=== PATIENT | male | born 1955 | race Caucasian/White ===

== ENCOUNTER 2019-01-23 23:45 | Emergency (ER) | payer MEDICAID ==
[~2019-01-23] VITALS: Ht 157.5 cm; Wt 81.6 kg
--- NOTE | 2019-01-23 23:45 | NUR ---
TO BED 7 AMBULATORY C/O GENERALIZED RASH, DEPRESSION, ANXIETY, SI WITHOUT PLAN PT STATES "I'M NOT QUITE THAT FAR YET", PT DENIES HI. PT CALM AND COOPERATIVE AT THIS TIME. PT AAOX4 NO ACUTE DISTRESS NOTED, RESP EVEN AND UNLABORED. PENDING ER MD DAGN.
--- NOTE | 2019-01-24 00:30 | NUR ---
URINE SAMPLE COLLECTED AND SENT TO LAB.
[2019-01-24 02:33] LABS: APPEARANCE,URINE Clear (CLEAR); BILIRUBIN,URINE Negative (NEGATIVE); BLOOD, URINE Negative Ery/uL (NEGATIVE); COLOR,URINE Yellow (YELLOW); KETONES,URINE Negative (NEGATIVE); LEUKOCYTE ESTERASE ,URINE Negative (NEGATIVE); NITRITE, URINE Negative (NEGATIVE); PROTEIN,URINE >=300 mg/dl (NEGATIVE); UGLUCOSE Negative (NEGATIVE); UROBILINOGEN,URINE 0.2 EU/dL (0.2)
[2019-01-24 02:48] LABS: BASOPHILS % (AUTO) 0.4 % (0.0-2.0); EOSINOPHILS % (AUTO) 5.2 % (0.0-6.0); HEMATOCRIT 46 % (39-51); HEMOGLOBIN 15.4 g/dL (13.5-17.5); LYMPHOCYTES # (AUTO) 1.8 /CMM (0.8-4.8); LYMPHOCYTES % (AUTO) 19.7 % (20.0-44.0); MEAN CORPUSCULAR HGB CONC 34 g/dl (31.0-36.0); MEAN CORPUSCULAR VOLUME 90 fL (80-96); MONOCYTES % (AUTO) 11.6 % (2.0-12.0); NEUTROPHILS # (AUTO) 5.7 /CMM (1.8-8.9); NEUTROPHILS % (AUTO) 63.1 % (43.0-81.0); PLATELET COUNT (AUTO) 213 /CMM (150-450); RED BLOOD CELL COUNT(AUTO) 5.05 MIL/uL (4.5-6.0)
[2019-01-24 02:50] LABS: CALCIUM, SERUM 8.9 mg/dL (8.5-10.1); CARBON DIOXIDE 24 mmol/L (21-32); CHLORIDE 106 mmol/L (98-107); CREATININE 2.4 mg/dL (0.6-1.3); GLUCOSE 114 mg/dL (74-106); POTASSIUM 4.1 mmol/L (3.5-5.1); SODIUM SERUM 142 mmol/L (136-145); UREA NITROGEN, BLOOD 41 mg/dL (7-18)
[2019-01-24 02:54] LABS: ALANINE AMINOTRANSFERASE 32 U/L (12-78); ALBUMIN 3.1 g/dL (3.4-5.0); ALKALINE PHOSPHATASE 88 U/L (46-116); ASPARTATE AMINOTRANSFERASE 16 U/L (15-37); BILIRUBIN,DIRECT 0.1 mg/dL (0.0-0.2); BILIRUBIN,TOTAL 0.2 mg/dL (0.2-1.0); TOTAL PROTEIN, SERUM 7.6 g/dL (6.4-8.2)
[2019-01-24 02:57] LABS: ACETAMINOPHEN 0 ug/ml (10-30); ALCOHOL, BLOOD < 3 mg/dL (0-0); SALICYLATE 1.1 mg/dL (2.8-20.0)
--- NOTE | 2019-01-24 03:16 | NUR ---
PAGED FLAT DRIER
--- NOTE | 2019-01-24 03:38 | NUR ---
PT ASLEEP, NO ACUTE DISTRESS NOTED, RESP EVEN AND UNLABORED. CALL LIGHT WITHIN REACH.
--- NOTE | 2019-01-24 04:19 | NUR ---
NIDIA POZO AT BEDSIDE TO EVAL PT. PT REMAINS CALM AND COOPERATIVE AT THIS TIME.
--- NOTE | 2019-01-24 05:28 | NUR ---
Patient discharged to home in stable condition. Written and verbal after care instructions given. Patient verbalizes understanding of instruction. ambulatory with a steady gait with proper use of personal walker. pt aaox4 no acute distress noted, resp even and unlabored. pt remains calm. pt denies SI/HI at this time. nursing sugar house supervisor called for taxi voucher as per pt request.
[2019-01-24 05:30] VITALS: BP 143/76
== END 2019-01-24 05:34 | disposition home or self-care (01) ==
LOC: ER 01-24 05:34
DX: R45.851 Suicidal ideations (principal); F41.9 Anxiety disorder, unspecified; F32.9 Major depressive disorder, single episode, unspecified; I12.9 Hypertensive chronic kidney disease with stage 1 through stage 4 chronic kidney disease, or unspecified chronic kidney disease; N18.9 Chronic kidney disease, unspecified
CPT/HCPCS: 36415; 80048; 80076; 80305; 80307; 80329; 81001; 85025; 99284; G0480; 81000-TC

== ENCOUNTER 2019-06-18 15:05 | Emergency (ER) | payer MEDICAID ==
[~2019-06-18] VITALS: Ht 177.8 cm; Wt 90.7 kg
--- NOTE | 2019-06-18 15:23 | NUR ---
BIB RA C/O FEELING WEAK AND DIZZY. PT AAOX4, VSS. RR EVEN & UNLABORED. DENIES CP, SOB, N/V, ARM/JAW PAIN @ THIS TIME. PT SEEN & EVAL'D BY DR. GUAMAN. PLACED ON CASH APPLICATION CLERK, SR. WILL CONT TO MONITOR.
[2019-06-18 15:26] LABS: BASOPHILS # (AUTO) 0.1 /CMM (0.0-0.2); EOSINOPHILS % (AUTO) 6.1 % (0.0-6.0); HEMATOCRIT 45 % (39-51); HEMOGLOBIN 14.9 g/dL (13.5-17.5); LYMPHOCYTES # (AUTO) 1.4 /CMM (0.8-4.8); LYMPHOCYTES % (AUTO) 19.6 % (20.0-44.0); MEAN CORPUSCULAR HGB CONC 33 g/dl (31.0-36.0); MEAN CORPUSCULAR VOLUME 87 fL (80-96); MONOCYTES # (AUTO) 1.2 /CMM (0.1-1.30); NEUTROPHILS % (AUTO) 56.3 % (43.0-81.0); PLATELET COUNT (AUTO) 275 /CMM (150-450); RED BLOOD CELL COUNT(AUTO) 5.14 MIL/uL (4.5-6.0)
[2019-06-18 15:37] LABS: CARBON DIOXIDE 22 mmol/L (21-32); CHLORIDE 106 mmol/L (98-107); CREATININE 3.6 mg/dL (0.6-1.3); GLUCOSE 98 mg/dL (74-106); POTASSIUM 4.9 mmol/L (3.5-5.1); SODIUM SERUM 139 mmol/L (136-145); UREA NITROGEN, BLOOD 63 mg/dL (7-18)
[2019-06-18] MEDS ORDERED: ZOLP12.52 PO (17:23)
[2019-06-18] MEDS ORDERED: METO50TA16 PO (17:23)
[2019-06-18] MEDS ORDERED: HYDR-4077 PO (17:23)
[2019-06-18] MEDS ORDERED: ATOR20TA PO (17:23)
--- NOTE | 2019-06-18 17:27 | NUR ---
TEXTED DR. GERARDO FOR MRI APPROVAL.
[2019-06-18 17:28] LABS: BAND % (MANUAL) 4 % (0.0-5.0); EOSINOPHILS % (MANUAL) 1 % (0-4); LYMPHOCYTES % (MANUAL) 24 % (16-48); MONOCYTES % (MANUAL) 14 % (0-11.0); NEUTROPHILS % (MANUAL) 57 (42-76)
[2019-06-18 18:24] LABS: APPEARANCE,URINE Cloudy (CLEAR); BILIRUBIN,URINE Negative (NEGATIVE); BLOOD, URINE Moderate Ery/uL (NEGATIVE); COLOR,URINE Yellow (YELLOW); KETONES,URINE Negative (NEGATIVE); LEUKOCYTE ESTERASE ,URINE Small (NEGATIVE); NITRITE, URINE Negative (NEGATIVE); PROTEIN,URINE >=300 mg/dl (NEGATIVE); UGLUCOSE Negative (NEGATIVE); UROBILINOGEN,URINE 0.2 EU/dL (0.2)
[2019-06-18 19:12] LABS: BACTERIA,URINE Many /HPF (None Seen); SQUAMOUS EPITHELIAL CELL,UR Few /HPF (None Seen)
--- NOTE | 2019-06-18 20:23 | NUR ---
FINISHING ROOM OPERATOR AT [facility] (NIDIA BLANCA) [phone] FOR UPDATES
--- NOTE | 2019-06-18 20:24 | NUR ---
SPOKE TO [facility]. WORKING ON TRANSFERRING PATIENT TO [facility]. AWAITING TRANSFER INFORMATION AND ACCEPTING MD.
[2019-06-18] MEDS ORDERED: CEFTRIAXONE 1GM BAG (ER ONLY) 1 GM/50 ML PIGGYBACK IV ONE (21:00)
[2019-06-18] MEDS ORDERED: CEFTRIAXONE 1GM BAG (ER ONLY) 50 ML IV ONE (21:56)
[2019-06-18] MEDS ORDERED: ASPIRIN EC 325 MG TABLET.DR PO ONE ×2 (22:00→22:10)
[2019-06-18 22:04] VITALS: BP 142/92
--- NOTE | 2019-06-18 22:10 | NUR ---
PT ACCEPTED TO [facility] RM [id number]. NUMBER FOR REPORT . AMBULN ETA: [id number]. #[id number]
--- NOTE | 2019-06-18 22:24 | NUR ---
CALLED TO GIVE REPORT, STATES THAT THEY WILL CALL BACK FOR REPORT. NURSE IS KWABENA.
--- NOTE | 2019-06-18 22:36 | NUR ---
REPORT GIVEN TO KWABENA LEON FOR [facility].
--- NOTE | 2019-06-18 23:16 | NUR ---
REPORT GIVEN TO [facility] FOR [facility]. AND TRANSFER.
== END 2019-06-19 00:07 | disposition short-term general hospital (02) ==
LOC: ER 15:09
DX: N39.0 Urinary tract infection, site not specified (principal); R26.89 Other abnormalities of gait and mobility; R20.0 Anesthesia of skin; R22.0 Localized swelling, mass and lump, head; I12.9 Hypertensive chronic kidney disease with stage 1 through stage 4 chronic kidney disease, or unspecified chronic kidney disease; N18.9 Chronic kidney disease, unspecified; F32.9 Major depressive disorder, single episode, unspecified; Z60.2 Problems related to living alone; Z79.899 Other long term (current) drug therapy
CPT/HCPCS: 36415; 51702; 70450; 71045; 80048; 81001; 84484; 85025; 87077; 87081; 87086; 87186; 93005; 96365; 99285; J0696; 81000-TC

== ENCOUNTER 2020-05-16 19:15 | Emergency (ER) | payer MEDICARE, OTHER ==
[~2020-05-16] VITALS: Ht 157.5 cm; Wt 82.1 kg
[~2020-05-16 19:15] MED LIST: ATOR20TA PO; HYDR-4077 PO; METO50TA16 PO; ZOLP12.52 PO
--- NOTE | 2020-05-16 19:32 | NUR ---
PATIENT CAME TO ER BED 3 C/O [facility] C/O RIGHT UPPER QUADRANT PAIN FOR THE PAST 2x DAYS AND UNABLE TO HAVE BOWEL MOVEMENT AND UNABLE TO URINATE. PATIENT IS AAOX4. NO SOB .BREATHING EVENLY AND UNLABORED ON ROOM AIR. CONNECTED TO THE MONITOR.
--- NOTE | 2020-05-16 19:54 | NUR ---
BLOOD COLLECTED AND SENT TO THE LAB.
--- NOTE | 2020-05-16 19:55 | NUR ---
EKG PERFORMED BY TECH.
--- NOTE | 2020-05-16 19:56 | NUR ---
ULTRASOUND AT BEDSIDE.
[2020-05-16 19:57] LABS: BASOPHILS # (AUTO) 0.1 /CMM (0.0-0.2); BASOPHILS % (AUTO) 0.6 % (0.0-2.0); EOSINOPHILS % (AUTO) 1.9 % (0.0-6.0); HEMATOCRIT 38 % (39-51); HEMOGLOBIN 12.1 g/dL (13.5-17.5); LYMPHOCYTES # (AUTO) 0.9 /CMM (0.8-4.8); LYMPHOCYTES % (AUTO) 7.3 % (20.0-44.0); MEAN CORPUSCULAR HGB CONC 32 g/dl (31.0-36.0); MEAN CORPUSCULAR VOLUME 81 fL (80-96); MONOCYTES # (AUTO) 1.1 /CMM (0.1-1.30); MONOCYTES % (AUTO) 8.9 % (2.0-12.0); NEUTROPHILS # (AUTO) 10.4 /CMM (1.8-8.9); NEUTROPHILS % (AUTO) 81.3 % (43.0-81.0); PLATELET COUNT (AUTO) 308 /CMM (150-450); RED BLOOD CELL COUNT(AUTO) 4.69 MIL/uL (4.5-6.0); WHITE BLOOD COUNT (AUTO) 12.7 K/uL (4.3-11.0)
[2020-05-16 20:08] LABS: CALCIUM, SERUM 9.7 mg/dL (8.5-10.1); CARBON DIOXIDE 24 mmol/L (21-32); CHLORIDE 104 mmol/L (98-107); CREATININE 3.3 mg/dL (0.6-1.3); GLUCOSE 123 mg/dL (74-106); POTASSIUM 4.6 mmol/L (3.5-5.1); SODIUM SERUM 141 mmol/L (136-145); UREA NITROGEN, BLOOD 26 mg/dL (7-18)
[2020-05-16 20:14] LABS: ALANINE AMINOTRANSFERASE 25 U/L (12-78); ALBUMIN 3.3 g/dL (3.4-5.0); ALKALINE PHOSPHATASE 101 U/L (46-116); ASPARTATE AMINOTRANSFERASE 16 U/L (15-37); BILIRUBIN,DIRECT 0.1 mg/dL (0.0-0.2); BILIRUBIN,TOTAL 0.1 mg/dL (0.2-1.0); LIPASE 59 U/L (73-393); TOTAL PROTEIN, SERUM 7.7 g/dL (6.4-8.2)
--- NOTE | 2020-05-16 20:32 | NUR ---
PATIENT TAKEN TO CT.
--- NOTE | 2020-05-16 20:41 | NUR ---
RETURNED FROM CT.
[2020-05-16] MEDS ORDERED: LIDOCAINE 2% JEL UROJET 10 ML MM ONE (21:00)
[2020-05-16 21:23] LABS: BILIRUBIN,URINE Negative (NEGATIVE); BLOOD, URINE Small Ery/uL (NEGATIVE); COLOR,URINE ORANGE (YELLOW); LEUKOCYTE ESTERASE ,URINE Large (NEGATIVE); NITRITE, URINE Positive (NEGATIVE); PROTEIN,URINE >=300 mg/dl (NEGATIVE); UGLUCOSE Negative (NEGATIVE); UROBILINOGEN,URINE 0.2 EU/dL (0.2)
[2020-05-16] MEDS ORDERED: CEFTRIAXONE 1GM BAG (ER ONLY) 50 ML IV ONE (21:48)
[2020-05-16] MEDS: CEFTRIAXONE 1 G in IV D5W 50 ML IV ONE (21:55)
[2020-05-16 21:56] LABS: BACTERIA,URINE 3+ /HPF (None Seen); SQUAMOUS EPITHELIAL CELL,UR Few /HPF (None Seen); WBC,URINE 21-50 /HPF (0-3)
--- NOTE | 2020-05-16 22:15 | NUR ---
CLINICAL INFORMATION GIVEN TO [facility] OPERATOR BIBIANA ([phone]) AND FAXED PER REQUEST ([phone])
--- NOTE | 2020-05-16 22:44 | NUR ---
LAB CALLED FOR NEGATIVE COVID RESULTS
--- NOTE | 2020-05-16 23:02 | NUR ---
DR. TRUJILLO SPEAKING WITH NINI HERNANDEZ
[2020-05-16 23:46] VITALS: BP 119/57
--- NOTE | 2020-05-17 00:03 | NUR ---
TRANSFER INFORMATION: PT WILL BE TRANSFERRED TO [facility] PER INSURANCE REQ ACCEPTING MD:DR. HARP NUMBER FOR REPORT: [phone] BED ASSIGNMENT [facility] ETA [id number]
--- NOTE | 2020-05-17 01:53 | NUR ---
REPORT GIVEN TO CAROLYN PAINTER FOR [facility]
--- NOTE | 2020-05-17 02:26 | NUR ---
gave report to private ambulance for simon.
== END 2020-05-17 02:26 | disposition short-term general hospital (02) ==
LOC: ER 19:18
DX: N30.01 Acute cystitis with hematuria (principal); R33.9 Retention of urine, unspecified; N13.30 Unspecified hydronephrosis; D64.9 Anemia, unspecified; R94.31 Abnormal electrocardiogram [ECG] [EKG]; Z20.828 Contact with and (suspected) exposure to other viral communicable diseases; E78.5 Hyperlipidemia, unspecified; I25.10 Atherosclerotic heart disease of native coronary artery without angina pectoris; Z95.5 Presence of coronary angioplasty implant and graft; I12.9 Hypertensive chronic kidney disease with stage 1 through stage 4 chronic kidney disease, or unspecified chronic kidney disease; N18.9 Chronic kidney disease, unspecified; F32.9 Major depressive disorder, single episode, unspecified
CPT/HCPCS: 36415; 51702; 71045; 74176; 76705; 80048; 80076; 81001; 83690; 84484; 85025; 87077; 87086; 87186; 87426; 93005; 96365; 99291; J0696; J3490; C9803